=== PATIENT | female | born 1970 | race Caucasian/White ===

== ENCOUNTER 2016-08-18 07:35 | Day surgery (SDC) ==
--- NOTE | 2016-08-17 15:38 | EKG Report ---
Test Performed on : 08/17/2016 3:30:44 PM Test Reason : PAT Blood Pressure : / mmHG Vent. Rate : 099 BPM Atrial Rate : 099 BPM P-R Int : 150 ms QRS Dur : 084 ms QT Int : 362 ms P-R-T Axes : 064 057 036 degrees QTc Int : 464 ms Normal sinus rhythm. Normal ECG When compared with ECG of 17-AUG-2016 15:27, (Unconfirmed) Rate related non-specific T wave changes: T wave inversion now evident in V1 Nonspecific T wave abnormality now evident in V2 Confirmed by Eric Lanier DO ([id number]) on 08/17/2016 7:05:05 PM
[2016-08-17 16:48] LABS: BASO% 0.4 % (0.0-0.8); EOS# 0.53 X1000 (0.0-0.7); EOS% 2.3 % (0.0-10.0); HEMATOCRIT 30.2 % (37.0-47.0); IMM GRAN# 0.25 X1000 (0.0-0.04); IMM GRAN% 1.1 % (0.0-0.5); LYMPH# 1.62 X1000 (1.2-3.4); MANUAL DIFF NEEDED? YES; MCH 24.6 PG (27-31); MCHC 29.8 g/dL (33-37); MCV 82.5 FL (81-99); MONO# 2.11 X1000 (0.11-0.59); MONO% 9.1 % (1.7-9.3); MPV 8.8 FL (7.4-10.4); NEUT% 80.1 % (42.2-75.2); PLT 844 X1000 (130-400); RBC 3.66 XMIL (4.2-5.4)
[2016-08-17 17:26] LABS: AGAP 15; ALBUMIN 2.7 g/dL (3.5-5.0); ALKALINE PHOSPHATASE 164 U/L (32-104); BUN 8 mg/dL (8-22); CALCIUM 9.6 mg/dL (8.8-10.2); CHLORIDE 94 mmol/L (98-107); COSMO 271; GOT 31 U/L (10-30); GPT 22 U/L (10-36); POTASSIUM 3.6 mmol/L (3.5-5.1); SODIUM 136 mmol/L (136-145); TCO2 27 mmol/L (25-35); TOTAL BILIRUBIN 0.18 mg/dL (0.20-1.00); TOTAL PROTEIN 6.8 g/dL (6.3-8.3)
[2016-08-17 18:03] LABS: BANDS 2 % (0-1); LYMPHS 8 % (21-51); MONO 4 % (1-9)
[2016-08-17 18:04] LABS: HYPOCHROM 1+
[2016-08-17 18:26] LABS: URINE MICRO REVIEW NEEDED? NO; URINE SOURCE CLEAN CATCH
[2016-08-17 18:45] LABS: BILIRUBIN URINE NEGATIVE (NEGATIVE); BLOOD URINE NEGATIVE (NEGATIVE); COLOR STRAW; GLUCOSE URINE NEGATIVE (NEGATIVE); LEUKOCYTES URINE NEGATIVE (NEGATIVE); NITRITE URINE NEGATIVE (NEGATIVE); PH URINE 5.5; PROTEIN URINE NEGATIVE (NEGATIVE); TURBIDITY URINE CLEAR (CLEAR); UROBILINOGEN URINE NORMAL (NORMAL)
[2016-08-17 18:57] LABS: SP GRAVITY URINE 1.004
[2016-08-17 18:58] LABS: UR EPITHELIAL CELLS <10 /HPF (<10); URINE BACTERIA NEGATIVE /HPF; URINE RBC <10 /HPF (<10); URINE WBC <10 /HPF (<10)
[2016-08-18] MEDS ORDERED: REGLAN ONE (07:48)
[2016-08-18] MEDS ORDERED: LR 1,000 ML ONE (07:48)
[2016-08-18] MEDS ORDERED: LEVAQUIN 500 MG/D5W 100 ML ONE (07:48)
[2016-08-18] MEDS ORDERED: PEPCID ONE (07:48)
[2016-08-18] MEDS ORDERED: HEPARIN ONE (08:48)
[2016-08-18] MEDS ORDERED: XYLOCAINE 1%/EPI 1:100,000 ONE (08:48)
[2016-08-18] MEDS ORDERED: SENSORCAINE 0.25%/EPI 1:200,000 ONE (08:48)
[2016-08-18] MEDS ORDERED: NS 250 ML ONE (08:48)
--- NOTE | 2016-08-18 09:02 | Diag Imaging Result Document ---
PROCEDURE NAME: CHEST-2 VIEWS - 08/18/2016 CHEST X-RAY, 2 VIEWS: COMPARISON: 05/25/2016. FINDINGS: There is stable vague density at the superior left mediastinum which may represent adenopathy or just vascular structures. The right hilum is prominent but unchanged. No focal infiltrates. No pneumothorax or pleural effusion. Heart size is normal. IMPRESSION: Possible mediastinal adenopathy. Little change from prior.
[2016-08-18] MEDS ORDERED: NORCO-10 ONE (10:30)
--- NOTE | 2016-08-18 10:35 | OPERATIVE NOTE ---
PROCEDURE DATE: 08/18/2016 PREOPERATIVE DIAGNOSIS: Hodgkin's lymphoma. PROCEDURE: Left subclavian PowerPort for chemotherapy. DESCRIPTION OF PROCEDURE: The patient was brought to the operating room. After satisfactory induction of IV and LMA anesthesia, her left neck and chest were prepped and draped in the appropriate manner. In the midclavicular line, 1 fingerbreadth below the clavicle, an area was infiltrated with Marcaine and Xylocaine with epinephrine. A transverse incision was made down to the clavipectoral fascia. Hemostasis was obtained by electrocautery. Through the base of this incision, a subcutaneous pocket was developed inferiorly. With Doppler guidance, the left IJ was identified. Local anesthesia was injected, and a small incision was made. The main was accessed but the wire would not traverse the area. The patient has significant adenopathy secondary to her Hodgkin's. Attention was then taken back to the subclavian incision. The subclavian vein was cannulated. A guidewire was introduced to the right atrial area of the heart with no pneumothorax. It was dilated with a 10-[place]namese dilator. The system was trimmed to 19 cm and threaded down the superior vena cava right atrial junction. It was flushed with heparinized saline and anchored to the clavipectoral fascia with 3-0 silk. The 2 incisions underwent subcutaneous closure of 3-0 Vicryl and 4-0 Vicryl subcuticular skin closure. Steri-Strips, Telfa, and OpSite were applied. She was awakened and extubated in the operating room and transferred to recovery. ESTIMATED BLOOD LOSS: About 10 mL.
[2016-08-18] MEDS ORDERED: ZOFRAN ONE (10:49)
[2016-08-18] MEDS ORDERED: XYLOCAINE-MPF 2% ONE (10:50)
[2016-08-18] MEDS ORDERED: DECADRON ONE (10:50)
--- NOTE | 2016-08-18 11:38 | Diag Imaging Result Document ---
PROCEDURE NAME: CHEST-PORTABLE - 08/18/2016 SINGLE FRONTAL RADIOGRAPH OF THE CHEST: COMPARISON: 08/18/2016. FINDINGS: There is a newly placed left chest port. The tip projects over the lower SVC just superior to the atriocaval junction in the expected position. There is no evidence of pneumothorax post placement. The chest is stable otherwise. IMPRESSION: Interval placement of left chest port with no evidence of pneumothorax post placement.
[2016-08-18 11:58] VITALS: BP 128/86
== END 2016-08-18 11:40 | disposition home or self-care (01) ==
LOC: OPS 07:35
PROVIDERS: ATTEND Surgery
DX: C81.90 Hodgkin lymphoma, unspecified, unspecified site (principal); I25.2 Old myocardial infarction; F17.210 Nicotine dependence, cigarettes, uncomplicated
CPT/HCPCS: 71010; 71020; 77001; 80053; 81001; 85025; 93005; 93010; C1788; J1100; J2405; J7050; J7120